=== PATIENT | male | born 1990 | race Caucasian/White ===

== ENCOUNTER 2021-03-08 17:54 | Emergency (ER) | payer OTHER ==
[2021-03-08 18:30] VITALS: BP 133/81; PULSE 108; TEMP 98.1; BMI 29.0
[2021-03-08 20:03] LABS: BASO % 0.8 % (0-2.0); EOS % 1.4 % (0-4.5); HEMATOCRIT 39.5 % (35.4-49); HEMOGLOBIN 13.9 GM/dL (11.7-16.9); LYMPH % 23.4 % (8-40); MCH 29.8 pg (25.7-33.7); MCHC 35.1 g/dl (32.0-35.9); MEAN CELL VOLUME 84.9 fl (80-96); MEAN PLT VOLUME 8.3 fl (7.5-11.1); MONO % 7.6 % (3.8-10.2); NEUT % 66.8 % (42.8-82.8); PLATELET COUNT 381 10^3/uL (134-434); RBC 4.65 M/mm3 (4.00-5.60); RDW 12.9 % (11.9-15.9); WHITE BLOOD COUNT 10.1 K/mm3 (4.0-10.0)
[2021-03-08 20:16] LABS: URINE APPEARANCE CLEAR; URINE BILIRUBIN NEGATIVE (NEGATIVE); URINE COLOR YELLOW; URINE GLUCOSE (UA) NEGATIVE (NEGATIVE); URINE KETONE NEGATIVE (NEGATIVE); URINE LEUK ESTERASE NEGATIVE (NEGATIVE); URINE NITRITE NEGATIVE (NEGATIVE); URINE PROTEIN NEGATIVE (NEGATIVE); URINE UROBILINOGEN 0.2 mg/dL (0.2-1.0)
[2021-03-08 20:22] LABS: CHLORIDE 107 mmol/L (98-107); SODIUM 137 mmol/L (136-145)
[2021-03-08 20:24] LABS: CALCIUM 9.5 mg/dL (8.5-10.1)
[2021-03-08 20:25] LABS: ALBUMIN 3.8 g/dl (3.4-5.0); BLOOD UREA NITROGEN 7.8 mg/dL (7-18); CO2 27 mmol/L (21-32); GLUCOSE,RANDOM 81 mg/dL (74-106); LIPASE 64 U/L (73-393)
[2021-03-08 20:27] LABS: SGPT/ALT 75 U/L (13-61)
[2021-03-08 20:28] LABS: SGOT/AST 87 U/L (15-37)
[2021-03-08 20:29] LABS: BILIRUBIN,TOTAL 0.4 mg/dL (0.2-1); TOT PROT 8.2 g/dl (6.4-8.2)
[2021-03-08 20:30] LABS: ALK PHOS 67 U/L (45-117)
[2021-03-08 20:35] LABS: MAGNESIUM 2.1 mg/dL (1.8-2.4)
[2021-03-08 20:41] LABS: ANION GAP 3 MMOL/L (8-16)
[2021-03-08 21:58] LABS: ALBUMIN 3.8 g/dl (3.4-5.0); BLOOD UREA NITROGEN 8.5 mg/dL (7-18); CALCIUM 9.3 mg/dL (8.5-10.1)
[2021-03-08 22:03] LABS: BILIRUBIN,TOTAL 0.5 mg/dL (0.2-1); TOT PROT 7.6 g/dl (6.4-8.2)
== END 2021-03-09 00:02 | disposition home or self-care (01) ==
LOC: JER 17:54
DX: R10.11 Right upper quadrant pain (principal)
CPT/HCPCS: 36415; 76705-TC; 80053; 81003; 82570; 83690; 83735; 83930; 83935; 84100; 85025; 87086; 93005; 93010; 99285-25

== ENCOUNTER 2022-02-20 17:19 | Emergency (ER) | payer OTHER ==
[2022-02-20 17:36] VITALS: BP 129/96; PULSE 84; RESP 20; TEMP 98.8; BMI 25.7
[2022-02-20] MEDS ORDERED: ACETAMINOPHEN 1000 MG/100 ML BAG IVPB ONE (18:17)
[2022-02-20] MEDS ORDERED: SODIUM CHLORIDE 1,000 ML IV STA (18:17)
[2022-02-20] MEDS ORDERED: KETOROLAC TROMETHAMINE 30 MG/1 ML VIAL ONE (18:17)
[2022-02-20] MEDS ORDERED: ACETAMINOPHEN INJECTION 100 ML IVPB ONE (18:18)
[2022-02-20 18:42] LABS: HEMATOCRIT 42.9 % (35.4-49); HEMOGLOBIN 14.7 G/dL (11.7-16.9); MCH 29.6 pg (25.7-33.7); MCHC 34.2 g/dl (32.0-35.9); MEAN CELL VOLUME 86.7 fl (80-96); MEAN PLT VOLUME 7.4 fl (7.5-11.1); RBC 4.95 10^6/uL (4.00-5.60); RDW 13.4 % (11.9-15.9); WHITE BLOOD COUNT 11.1 10^3/uL (4.0-10.8)
[2022-02-20 18:49] LABS: ALBUMIN 4.2 g/dl (3.4-5.0); CALCIUM 9.7 mg/dl (8.5-10); CREATININE 0.9 mg/dl (0.55-1.3); TOT PROT 7.8 g/dl (6.4-8.2)
[2022-02-20 19:07] LABS: PLATELET ESTIMATE ADEQUATE
== END 2022-02-20 20:24 | disposition home or self-care (01) ==
LOC: FER 17:19
PROC: 3E0333Z Introduction of Anti-inflammatory into Peripheral Vein, Percutaneous Approach (ICD-10-PCS; principal; 2022-02-20)
PROC: 3E0333Z Introduction of Anti-inflammatory into Peripheral Vein, Percutaneous Approach (ICD-10-PCS; 2022-02-20)
PROC: 3E0337Z Introduction of Electrolytic and Water Balance Substance into Peripheral Vein, Percutaneous Approach (ICD-10-PCS; 2022-02-20)
DX: R10.9 Unspecified abdominal pain (principal)
CPT/HCPCS: 36415; 74176-TC; 80053; 81003; 83690; 85027; 93005; 99285-25